=== PATIENT | female | born 1985 | race Caucasian/White ===

== ENCOUNTER 2021-01-06 18:58 | Inpatient (IN) | payer SELFPAY ==
[~2021-01-06] VITALS: Ht 170.2 cm; Wt 73.9 kg
--- NOTE | 2021-01-06 19:17 | NUR ---
PATIENT BIBRA C/O ALTERED MENTAL STATUS FROM A HOMELESS LONG-TERM'S RESTROOM FOUND UNCONSCIOUS. GIVEN NARCAN BY PARAMEDICS. PATIENT IS THRASHING, SELF-DEFECATING WITH DIARRHEA. PATIENT IS RESPONSIVE TO PAINFUL STIMULI. PATIENT IS BREATHING EVENLY AND UNLABORED ON 4L N/C AT 99%. PATIENT IS CONNECTED TO A HEAD SAWYER AUT[employer]ATIC.
--- NOTE | 2021-01-06 19:20 | NUR ---
PATIENT IS CLEANED, GIVEN A BED BATH. CHANGED INTO A GOWN. CLEAN SHEET IS GIVEN.
--- NOTE | 2021-01-06 19:45 | NUR ---
URINE COLLECTED AND SENT TO THE LAB
[2021-01-06] MEDS ORDERED: NALOXONE PREFILLED SYRINGE 2 MG/2 ML SYRINGE ONE (21:19)
[2021-01-06 21:20] LABS: BILIRUBIN,URINE SMALL (NEGATIVE); COLOR,URINE YELLOW (YELLOW); LEUKOCYTE ESTERASE ,URINE Small (NEGATIVE); NITRITE, URINE Positive (NEGATIVE); PH,URINE 5.5 (5.0-8.0); PROTEIN,URINE 100 mg/dl (NEGATIVE); UGLUCOSE Negative (NEGATIVE)
[2021-01-06] MEDS ORDERED: IV NS 0.9% 1,000 ML BAG IV ONE (21:30)
[2021-01-06] MEDS ORDERED: NALOXONE HCL 0.4 MG/ML AMPUL IV ONE (21:30)
[2021-01-06 21:33] LABS: BACTERIA,URINE Moderate /HPF (None Seen); SQUAMOUS EPITHELIAL CELL,UR 0-2 /HPF (None Seen); WBC,URINE 81-100 /HPF (0-3)
[2021-01-06 21:34] LABS: BASOPHILS # (AUTO) 0.1 K/uL (0.0-0.2); BASOPHILS % (AUTO) 0.3 % (0.0-2.0); HEMOGLOBIN 7.9 g/dL (11.5-14.8); LYMPHOCYTES # (AUTO) 1.6 K/uL (0.8-4.8); MONOCYTES # (AUTO) 0.7 K/uL (0.1-1.30)
[2021-01-06 21:37] LABS: HEMATOCRIT 25 % (33-45); MEAN CORPUSCULAR HGB CONC 32 g/dl (31.0-36.0); MEAN CORPUSCULAR VOLUME 79 fL (82-100); MONOCYTES % (AUTO) 3.6 % (2.0-12.0); NEUTROPHILS % (AUTO) 88.1 % (43.0-81.0); PLATELET COUNT (AUTO) 419 K/uL (150-450); RED BLOOD CELL COUNT(AUTO) 3.08 MIL/uL (4.0-5.2); WHITE BLOOD COUNT (AUTO) 20.4 K/uL (4.3-11.0)
[2021-01-06] MEDS ORDERED: CEFTRIAXONE 1GM BAG (ER ONLY) 50 ML IV ONE ×2 (21:38→22:00)
[2021-01-06] MEDS ORDERED: AZITHROMYCIN 500 MG VIAL ONE (21:38)
[2021-01-06 21:49] LABS: CALCIUM, SERUM 7.5 mg/dL (8.5-10.1); CARBON DIOXIDE 27 mmol/L (21-32); CHLORIDE 87 mmol/L (98-107); CREATININE 0.6 mg/dL (0.6-1.3); GLUCOSE 135 mg/dL (74-106); POTASSIUM 2.9 mmol/L (3.5-5.1); SODIUM SERUM 125 mmol/L (136-145); UREA NITROGEN, BLOOD 8 mg/dL (7-18)
[2021-01-06 21:55] LABS: ACETAMINOPHEN < 10 ug/ml (10-30); ALANINE AMINOTRANSFERASE 8 U/L (12-78); ALBUMIN 1.6 g/dL (3.4-5.0); ALCOHOL, BLOOD < 3 mg/dL (0-0); ALKALINE PHOSPHATASE 104 U/L (46-116); ASPARTATE AMINOTRANSFERASE 35 U/L (15-37); BILIRUBIN,DIRECT 0.5 mg/dL (0.0-0.2); BILIRUBIN,TOTAL 1.1 mg/dL (0.2-1.0); TOTAL PROTEIN, SERUM 6.1 g/dL (6.4-8.2)
[2021-01-06] MEDS ORDERED: AZITHROMYCIN 500 MG in IV D5W 250 ML IV ONE (22:00)
--- NOTE | 2021-01-06 22:20 | NUR ---
COVID SWAB RAPID COLLECTED AND SENT TO THE LAB.
[2021-01-07 00:32] LABS: BAND % (MANUAL) 3 % (0.0-5.0); LYMPHOCYTES % (MANUAL) 7 % (16-48); METAMYELOCYTES % 1 % (0-0); MONOCYTES % (MANUAL) 1 % (0-11.0); NEUTROPHILS % (MANUAL) 88 (42-76)
--- NOTE | 2021-01-07 01:01 | NUR ---
PATIENT CLEANED AND PROVIDED WITH CLEAN SHEETS AND GOWN
--- NOTE | 2021-01-07 06:14 | NUR ---
Patient is awake. Alert and oriented X4. Patient is asking for Neema (friend) and Lavelle (Boyfriend)
--- NOTE | 2021-01-07 06:49 | NUR ---
Note iman in EDM - 01/07/21 at 0710 by SON Patient's medication, Timoptic give 1 drop in each eyes once in the AM. Dorzolamid HCL give 1 drop in each eye once in the AM and once in the PM. Lumigan give 1 drop in each eye once in the PM.
--- NOTE | 2021-01-07 09:12 | NUR ---
HOUSE SUP CALLED FOR BED,NO BED AT THIS TIME
--- NOTE | 2021-01-07 13:46 | NUR ---
SS Consult: SS Consult requested for OD & Homelessness. The pt. is a 36-year old female who was BIBRA after "found unconscious in the bathroom of a homeless skilled nursing. Patient was given Narcan and was revived " per EMR. The pt. appears disheveled is A&O X3 and makes good eye contact. Pt.'s speech and thought process are WNL. Pt. denies SI/HI an denies hallucinations. Pt.'s mood is Depressed and pt. is guarded. BARON explored pt.'s living situation. Pt. states he has been homeless and is currently staying with a friend. SW explored pt.'s mental health Hx. Pt. denies any mental health illness or psychotropic medications. SW explored pt.'s drug & ETOH use. Patient admits to drug use and stated, "I don't want to talk about it". SW offered rehab placement and pt. refused. SW explored pt.'s support system. Pt. states her friend, Neema [phone] is her support system. Pt. states she is not ambulatory. SW will provide clothing and wheelchair before D/C if needed. SW will be available. D/C PLAN: SW Offred pt. skilled nursing placement and pt. refused and stated "I want to go home". SW asks where is home. Pt. did not provide details. SW explore if pt.'s friend can pick her up. Pt. stated, "can I use the phone?". SW notified her that she is able to use the phone and will notify nursing. SW will be available to assist with D/C planning when pt. is medically clear. Pt. signed homeless waiver and it was placed in the chart. BARON provided pt. with homeless resources and he accepted them : Year-round shelters: [facility] [address] [place] [address] ; [facility] [address] [place] [address]; [facility] [id number] [facility] [address] Winter Shelters: [facility] Provider: [facility] [place] Address: [facility], [address] # of Beds: 47 Population Served: [facility] 6 | [facility] Irma Collier [place] Provider: Home at Last Address: [address] [facility], [address] # of Beds: 66 Population Served: [facility] Amelia [place] Provider: [facility] Address: [address] [facility], [address] # of Beds: 56 Population Served: [facility] Lucian [place] Provider: SS[facility] Address: [address] [facility], [address] # of Beds: 49 Population Served: [facility] 8 | Faith Bear Dance Provider: First to Serve Address: [address] [facility], [address] # of Beds: 37 Population Served: [facility] Hygiene: [facility]: [address] [facility] ; [place] [facility] [address] [facility] ; [facility] [address] [facility] [place] . Food Resources: [place] [facility] at [facility]- [address] [facility] [place]; Meet Each Need with Dignity ([facility]) [address] [facility]; [facility] Food Pantry 7766 [facility]; [facility] [address] [facility] [place] Mental Health resources provided: [facility] [address] [place] [address] ; [facility] [address] [facility] [address], [place] [address] ; Scarlet Kinney [facility] [address] [place] [address] ; [facility] [address] [place], [place] [id number] Healthcare Clinics: [facility] [address] [facility], [address] [place]. [place] ; [facility] [address] [facility] [address] [place] [address]; [facility] Health [place] [address] [place] [address] [phone] Counseling--Outpatient [facility] [address] [facility], [place] [address] (Specializes in in-depth psychotherapy for emotional distress: anxiety, depression, interpersonal conflicts, life transitions, childhood abuse) [facility] [address] [place] [address] (Assist with solving problem marital difficulties, separation & divorce, aging parents, & grief, chronic & terminal illness) [facility] [address] [place] [address] (Deal with loss & grief, anxiety, marital difficulties) Homebound/Mental Health Services [address] [facility] [address] [place] [address] (Provide in-home mental services to people who are incapable of leaving their homes) [facility] for Needs of the Elderly Senior Service/Resource Center [address] [facility] [address] [facility] [address] [place], [place] [address] PSYCHIATRIC OUTPATIENT SERVICES [facility] Partial Hospitalization and Intensive Outpatient Program (Managed Care and [place] Only)[address] [address]. [facility] [phone] [facility] Partial Hospitalization and Outpatient [id number] [facility] [address] [place], [place] [phone] [facility] Center [id number] [facility] [address] [place], [place] [phone] [facility] Partial Hospitalization and Outpatient [id number] [place], [phone] Substance Abuse resources provided included: [facility] Substance Abuse Self-Helpline ([facility]) ; C[facility]LP [address] Counts Include 234 Beds At [facility]. [place] [address] ; [facility] [address] [facility] [address] ; [facility] [address] [facility] v[facility]. [place] [id number] ; [facility] [address] [facility] [id number] ; [facility] 35[address] Lavelle Nichols [facility] [address] ; [facility] [place] 9[address] [facility] [phone] ; [facility] Substance Abuse Helpline([facility] ; [facility] ; [facility]; [facility] [place]; [facility] [place]; [facility] Lavelle Nichols; [place] [facility] [place]; [facility] [place]; [facility] [place]; [facility]'s [place] [place]; Alcoholics Anonymous -SFV; At-Oiio-Ijunbqb ; Marijuana Anonymous -[facility]V; Narcotics Anonymous www.na.org;
[2021-01-07] MEDS ORDERED: POTASSIUM CHLORIDE 20 MEQ TAB.PRT.SR PO ONE ×2 (14:00→18:00)
[2021-01-07] MEDS ORDERED: IV NS 0.9% 1,000 ML IV PRN (14:00)
[2021-01-07] MEDS ORDERED: ONDANSETRON HCL/PF 4 MG/2 ML VIAL IVP PRN (14:00)
[2021-01-07] MEDS ORDERED: MAG HYDROX/AL HYDROX/SIMETH 30 ML UDC PO PRN (14:00)
[2021-01-07] MEDS ORDERED: Z GUARD REMEDY 2 OZ OINT TP PRN (14:00)
[2021-01-07] MEDS ORDERED: LORAZEPAM INJ 2 MG/ML VIAL IV PRN (14:00)
--- NOTE | 2021-01-07 14:00 | NUR ---
RN NOTE PATIENT REFUSED FULL BODY PHYSICAL ASSESSMENT INCLUDING GENITAL AREA.
[2021-01-07 16:00] VITALS: BP 112/85
--- NOTE | 2021-01-07 17:05 | NUR ---
PT FRIENDS NUMBER SCOTT DOMINGUEZ [phone]
--- NOTE | 2021-01-07 18:24 | NUR ---
RN CLOSING NOTES; PT IN BED RESTING, SLEEPING. PT TOLERATED 100% OF MEAL. PT A/OX3, PT STRUGGLES TO MOVE HER LEGS. PT HAD 2 BM, CLEANED AND DRY. PT HAS R HAND #22 WITH SALINE RUNNING TKO. PT ON REG DIET. VITAL SIGNS TAKEN AND WITHIN NORMAL LIMITS. PT BED RAILS UPX2, IN SEMI FOWLERS POSITION WITH CALL LIGHT WITHIN REACH. PT ENDORSED TO HEAT TREATMENT TECHNICIAN RN.
--- NOTE | 2021-01-07 19:46 | NUR ---
RN OPENING NOTE; RECEIVED PT IN BED RESTING IN BED, A/O X1-2. ON 2L O2 VIA NC, NO SOB OR RESP. DISTRESS NOTED. ON TELE MONITOR SINUS TACHYCARDIA. PT HAS R HAND 22G RUNNING NS @ 125ML/HR. SAFETY MEASURES IMPLEMENTED: SIDE RAILS UPX2, IN SEMI FOWLERS POSITION WITH CALL LIGHT WITHIN REACH. BED LOCKED AND IN LOWEST POSITION. NO ACUTE DISTRESS NOTED AT THIS TIME
[2021-01-07 20:00] VITALS: BP 96/45
--- NOTE | 2021-01-07 20:10 | NUR ---
RN NOTE PT. VITAL SIGNS ABNORMAL. TEMP 101, HR 130'S (CURRENT BASELINE) AND RR 30'S. METAL TILE LATHER MD AND CHARGE NURSE AWARE WITH NO FURTHER ORDERS. CURRENT ABX TREATMENT TO BE CONTINUED.
[2021-01-07] MEDS: CEFTRIAXONE 1 G in IV D5W 50 ML IV SCH (21:11)
[2021-01-07] MEDS: AZITHROMYCIN 250 MG TABLET PO SCH (21:11)
--- NOTE | 2021-01-07 21:58 | NUR ---
215 NADYA Brito was notified of critical blood culture result Gram Positive Cocci in clusters, and temp of 101.7 with no order made.
[2021-01-08] VITALS: BP 101/59
--- NOTE | 2021-01-08 01:00 | NUR ---
RN NOTE PT. CONTINUOS TO HAVE LOW GRADE FEVER 99.1, RR NOW IN 30'S, AND HR REMAINS 130'S. DR. HALL MADE AWARE, AWAITING RESPONSE.
[2021-01-08 04:00] VITALS: BP 102/50
--- NOTE | 2021-01-08 06:00 | NUR ---
RN NOTE UPON PT ROUNDING, PT. STATED SHE WAS LEAKING FROM RIGHT BREAST IMPLANT. OPEN ABOUT 2CM X 1CM. PICTURE TAKEN AND PLACED IN PT. CHART. CHARGE NURSE AWARE. WILL ENDORSE TO MORNING SHIFT RN .
[2021-01-08 06:38] LABS: BASOPHILS % (AUTO) 0.2 % (0.0-2.0); HEMATOCRIT 22 % (33-45); HEMOGLOBIN 7.2 g/dL (11.5-14.8); LYMPHOCYTES # (AUTO) 1.6 K/uL (0.8-4.8); LYMPHOCYTES % (AUTO) 12.5 % (20.0-44.0); MEAN CORPUSCULAR HGB CONC 32 g/dl (31.0-36.0); MEAN CORPUSCULAR VOLUME 81 fL (82-100); MONOCYTES # (AUTO) 0.4 K/uL (0.1-1.30); MONOCYTES % (AUTO) 2.8 % (2.0-12.0); NEUTROPHILS # (AUTO) 10.9 K/uL (1.8-8.9); NEUTROPHILS % (AUTO) 84.5 % (43.0-81.0); PLATELET COUNT (AUTO) 385 K/uL (150-450); RED BLOOD CELL COUNT(AUTO) 2.77 MIL/uL (4.0-5.2)
--- NOTE | 2021-01-08 06:57 | NUR ---
RN OPENING NOTE; PT SITTING IN BED, A/O X1-2. ON 2L O2 VIA NC, NO RESP. DISTRESS NOTED. ON TELE MONITOR SINUS TACHYCARDIA. PT HAS R HAND 22G RUNNING NS @ 125ML/HR. LOW GRADE FEVER ALONG WITH RESPIRATIONS IN 30'S, FUNERAL ARRANGER MD AND CHARGE NURSE AWARE. ALL ORDERS FOLLOWED THROUGHOUT SHIFT. PT KEPT CLEAN AND DRY. SAFETY MEASURES IMPLEMENTED: SIDE RAILS UPX2, IN SEMI FOWLERS POSITION WITH CALL LIGHT WITHIN REACH. BED LOCKED AND IN LOWEST POSITION. NO ACUTE DISTRESS NOTED AT THIS TIME Addendum: 01/08/21 at 0701 by ZIGGY RUFFIN RN CORRECTION: THIS IS [employer] CLOSING NOTE
[2021-01-08 07:14] LABS: THYROID STIMULATING HORMONE 1.185 uIU/mL (0.358-3.74)
--- NOTE | 2021-01-08 07:25 | NUR ---
RN OPENING NOTES RECEIVED PT IN BED, A/O X1. ON 4L O2 VIA NC, NO SOB OR ANY S/S OF RESPIRATORY DISTRESS NOTED. ON TELE MONITOR READING SINUS TACHYCARDIA. IV ACCESS ON R HAND #22 RUNNING NS @125ML/HR. NO PAIN REPORTED AT THIS TIME. SAFETY MEASURES IMPLEMENTED. CALL LIGHT WITHIN REACH. BED LOCKED AND IN LOWEST POSITION WITH SIDE RAILS UP X3. WILL CONTINUE TO MONITOR.
[2021-01-08 08:00] VITALS: BP 110/56
[2021-01-08 09:08] LABS: CALCIUM, SERUM 7.3 mg/dL (8.5-10.1); CREATININE 0.5 mg/dL (0.6-1.3); MAGNESIUM 1.9 mg/dL (1.8-2.4); PHOSPHORUS 2.2 mg/dL (2.5-4.9); POTASSIUM 3.6 mmol/L (3.5-5.1)
[2021-01-08] MEDS: PANTOPRAZOLE 40 MG TABLET.DR PO SCH (09:17)
[2021-01-08 12:00] VITALS: BP 108/60
--- NOTE | 2021-01-08 13:13 | NUR ---
CHARGE NURSE NOTES REPORT FROM [facility], PATIENT MRSA POSITIVE - URINE. RESULT RELAYED TO DR. PHILL BRADLEY. FOR ID CONSULT C/O ANGELINA
[2021-01-08] MEDS ORDERED: VANCOMYCIN 1 GM in IV D5W 250 ML IV ONE (15:00)
[2021-01-08] MEDS ORDERED: K PHOS NEUTRAL 250 MG TABLET PO ONE (15:30)
[2021-01-08 16:00] VITALS: BP 107/58
--- NOTE | 2021-01-08 18:51 | NUR ---
RN CLOSING NOTES NO SIGNIFICANT CHANGES THROUGHOUT THE SHIFT. NO SOB OR ANY DISTRESS. NO PAIN REPORTED AT THIS TIME. ALL DUE MEDS GIVEN. NEEDS ATTENDED. KEPT CLEAN AND COMFORTABLE. SAFETY MEASURES IN PLACE. WILL ENDORSE TO NIGHT RN FOR CHARLES.
--- NOTE | 2021-01-08 19:24 | NUR ---
RN OPENING NOTE PATIENT IN BED. A/OX2. PATIENT TACHYPNEIC SATURATING AT 93%-- ENCOURAGED TO PUT OXYGEN ON, NOW ON OXYGEN 3LPM. NO C/O PAIN. BILATERAL LEG EDEMA NON-PITTING NOTED. IV ANTIBIOTIC RUNNING AT THIS TIME. MEPILEX NOTED ON R. BREAST. DRY AND INTACT. TELE BOX READING ST AT 118. NO NEEDS AT THE MOMENT. SAFETY IN PLACE. WILL CONTINUE TO MONITOR.
[2021-01-08 20:00] VITALS: BP 112/66
[2021-01-08] MEDS: CEFTRIAXONE 1 G in IV D5W 50 ML IV SCH (20:31)
[2021-01-08] MEDS: ACETAMINOPHEN 325 MG TABLET PO PRN (20:40)
--- NOTE | 2021-01-08 20:42 | NUR ---
WEATHER CLERK NOTE TYLENOL GIVEN AT THIS TIME. PATIENT C/O 10/10 PAIN IN HER LEGS BUT ONLY HAS TYLENOL PRESCRIBED AT THE MOMENT. WILL REASSESS.
--- NOTE | 2021-01-08 20:42 | NUR ---
MS RN NOTES PATIENT HAS TAKEN OFF HER OXYGEN AGAIN.. PER PATIENT "SORRY, I CAN'T". PATIENT EDUCATION WAS DONE.. TOLD THE PATIENT THE I REALLY THINK THAT SHE WOULD BENEFIT FROM IT AND SHE SHOULD KEEP IT ON. PATIENT ACKNOWLEDGED BUT ADAMANTLY REFUSES. WILL CONTINUE TO MONITOR.
[2021-01-08] MEDS: MUPIROCIN OINT 2% 22 GM TUBE NS SCH (21:00)
[2021-01-08] MEDS ORDERED: MEROPENEM 500 MG in IV NS 0.9% 50 ML IV SCH (21:00)
[2021-01-08] MEDS: RIFAMPIN 300 MG CAPSULE PO SCH (21:39)
[2021-01-08] MEDS: TEMAZEPAM 15 MG CAPSULE PO PRN (21:41)
[2021-01-08] MEDS: AZITHROMYCIN 250 MG TABLET PO SCH (22:17)
[2021-01-08] MEDS: VANCOMYCIN 0.75 GM in IV D5W 250 ML IV SCH (22:18)
[2021-01-08] MEDS ORDERED: MEROPENEM 500 MG VIAL IV ONE (22:50)
[2021-01-08] MEDS: MEROPENEM 500 MG in IV NS 0.9% 50 ML IV SCH (22:54)
[2021-01-09] MEDS: IV NS 0.9% 1,000 ML IV PRN (05:37)
[2021-01-09] MEDS ORDERED: MEROPENEM 500 MG VIAL IV ONE (05:53)
[2021-01-09] MEDS: MEROPENEM 500 MG in IV NS 0.9% 50 ML IV SCH (05:58)
--- NOTE | 2021-01-09 06:16 | NUR ---
MS RN NOTES PATIENT AGREED TO BE PUT ON OXYGEN LONG IT IS A MASK. PER PATIENT THE NASAL CANNULA IS IRRITATING HER NOSE. DID PATIENT TEACHING THAT THE MASK IS ONLY FOR HIGH FLOW OXYGEN AND SHE IS ONLY RECEIVING 2LPM OF OXYGEN. PATIENT ADAMANTLY REFUSED NASAL CANNULA HENCE I GAVE HER A MASK FOR OXYGEN. WILL REINFORCE AND ENDORSE TO MORNING SHIFT RN
--- NOTE | 2021-01-09 06:37 | NUR ---
MS RN CLOSING NOTE PATIENT IN BED WATCHING TELEVISION. A/OX3. PATIENT TACHYPNEIC BUT BEEN REFUSING OXYGEN -- ON AND OFF. NO C/O PAIN AT THIS TIME. IV NS RUNNING @75 ML/HR. ALL NEEDS ATTENDED. ALL SCHED MEDS ADMINISTEREDEXCEPT FOR THE NEW ORDER OF BACTROBAN THAT WAS NOT ON CASSETTE NOR BED SIDE YET. SAFETY KEPT IN PLACE THE WHOLE SHIFT. WILL ENDORSE CARE TO MORNING SHIFT RN.
--- NOTE | 2021-01-09 07:19 | NUR ---
RN OPENING NOTE Pt is Awake, A/OX2, no respiratory distress, no SOB, On room air. BECKY Midline 18 w no s/sx of infiltration. Safety precautions implemented, bed locked in lowest position, call light within reach.
[2021-01-09 07:47] LABS: BASOPHILS % (AUTO) 0.2 % (0.0-2.0); EOSINOPHILS % (AUTO) 0.2 % (0.0-6.0); HEMATOCRIT 26 % (33-45); HEMOGLOBIN 8.3 g/dL (11.5-14.8); LYMPHOCYTES # (AUTO) 1.8 K/uL (0.8-4.8); LYMPHOCYTES % (AUTO) 19.7 % (20.0-44.0); MEAN CORPUSCULAR HGB CONC 32 g/dl (31.0-36.0); MEAN CORPUSCULAR VOLUME 82 fL (82-100); MONOCYTES # (AUTO) 0.4 K/uL (0.1-1.30); MONOCYTES % (AUTO) 3.9 % (2.0-12.0); NEUTROPHILS # (AUTO) 6.9 K/uL (1.8-8.9); PLATELET COUNT (AUTO) 387 K/uL (150-450)
[2021-01-09] MEDS: VANCOMYCIN 0.75 GM in IV D5W 250 ML IV SCH ×2 (08:09→15:38)
[2021-01-09] MEDS: MUPIROCIN OINT 2% 22 GM TUBE NS SCH ×2 (08:11→21:21)
[2021-01-09] MEDS: PANTOPRAZOLE 40 MG TABLET.DR PO SCH (08:12)
[2021-01-09] MEDS: RIFAMPIN 300 MG CAPSULE PO SCH (08:12)
[2021-01-09 08:25] LABS: CALCIUM, SERUM 7.2 mg/dL (8.5-10.1); CREATININE 0.4 mg/dL (0.6-1.3); PHOSPHORUS 3.3 mg/dL (2.5-4.9)
[2021-01-09 09:45] LABS: THYROID STIMULATING HORMONE 1.56 uIU/mL (0.358-3.74)
[2021-01-09 10:00] VITALS: BP 106/67
[2021-01-09] MEDS: POTASSIUM CHLORIDE 20 MEQ TAB.PRT.SR PO SCH ×3 (11:08→12:39)
[2021-01-09] MEDS: MEROPENEM 1 G in IV NS 0.9% 100 ML IV SCH ×2 (12:13→21:13)
[2021-01-09] MEDS ORDERED: diphenhydrAMINE HCL 50 MG CAPSULE PO PRN (14:00)
--- NOTE | 2021-01-09 15:12 | NUR ---
RN NOTE Refused MRI spine, explained risks and benefits. Continues to refuse states she does not need it. aware.
[2021-01-09] MEDS: ACETAMINOPHEN 325 MG TABLET PO PRN ×2 (15:38→23:06)
--- NOTE | 2021-01-09 19:21 | NUR ---
CONTINUITY OF CARE Patient in bed, awake. Ongoing IVF, tolerating room air. BUE/BLE weakness. Fall precaution maintained.
[2021-01-09 20:00] VITALS: BP 115/68
[2021-01-09] MEDS: AZITHROMYCIN 250 MG TABLET PO SCH (21:18)
[2021-01-09] MEDS: TEMAZEPAM 15 MG CAPSULE PO PRN (23:06)
[2021-01-09] MEDS: VANCOMYCIN 1 GM in IV D5W 250 ML IV SCH (23:16)
--- NOTE | 2021-01-09 23:21 | NUR ---
UNABLE TO SLEEP Given Tylenol for left thigh pain. Patient reports unable to sleep request sleep aid. Given Ambien, will reassess hours of sleep.
[2021-01-10] MEDS: MEROPENEM 1 G in IV NS 0.9% 100 ML IV SCH ×3 (04:27→21:52)
--- NOTE | 2021-01-10 06:34 | NUR ---
CONTINUITY OF CARE Patient is A/O x3, Forgetful. Ongoing IVF. On Abx Merrem and Vancomycin. Afebrile. BUE/BLE weakness, trace edema. Right breast open wound with light yellow discharge, dressing changed. Able to sleep 6 hours with Restoril. MRI spine pending. Will endorse to oncoming RN.
[2021-01-10] MEDS: IV NS 0.9% 1,000 ML IV PRN (07:04)
[2021-01-10] MEDS: VANCOMYCIN 1 GM in IV D5W 250 ML IV SCH ×3 (07:05→23:59)
[2021-01-10] MEDS: RIFAMPIN 300 MG CAPSULE PO SCH (09:00)
[2021-01-10] MEDS: PANTOPRAZOLE 40 MG TABLET.DR PO SCH (09:00)
[2021-01-10] MEDS: MUPIROCIN OINT 2% 22 GM TUBE NS SCH ×2 (09:01→22:13)
[2021-01-10] MEDS ORDERED: POTASSIUM CHLORIDE 20 MEQ TAB.PRT.SR PO ONE (09:30)
[2021-01-10 10:09] LABS: CALCIUM, SERUM 7.3 mg/dL (8.5-10.1); CREATININE 0.6 mg/dL (0.6-1.3); POTASSIUM 3.4 mmol/L (3.5-5.1)
[2021-01-10] MEDS ORDERED: LORAZEPAM INJ 2 MG/ML VIAL IV PRN (11:00)
[2021-01-10] MEDS: VENLAFAXINE XR 75 MG CAP.SR.24H PO SCH (11:46)
[2021-01-10] MEDS: MORPHINE SULFATE INJ 4 MG/ML DISP.SYRIN IV PRN ×3 (13:40→22:13)
[2021-01-10] MEDS: ENOXAPARIN SODIUM 40 MG/0.4 ML DISP.SYRIN SQ SCH (15:29)
--- NOTE | 2021-01-10 18:33 | NUR ---
MS RN CLOSING NOTE PATIENT CURRENTLY LYING IN BED, AWAKE AND WATCHING TV. STABLE ON ROOM AIR - NO SOB NOTED. NO DISTRESS/DISCOMFORT NOTED. IV ACCESS TO RIGHT UPPER ARM - MIDLINE - RUNNING NS @ 75ML/HR. LAST PAIN MEDICATION GIVEN @ 1809 FOR GENERALIZED PAIN - MORPHINE 4MG IV. PATIENT WILL HAVE MRI TOMORROW MORNING. WOUND CONSULT PENDING. SAFETY MEASURES IN PLACE. CALL LIGHT WITHIN REACH. WILL ENDORSE TO TOOL ROOM GEAR MACHINE OPERATOR NURSE FOR CHARLES.
--- NOTE | 2021-01-10 19:40 | NUR ---
RN NOTE PT RECEIVED IN BED. CURRENTLY ON 2L OF O2 VIA NC. NO SIGNS OF RESP DISTRESS. PT IS A&OX3. PT HAS RIGHT UPPER ARM MIDLINE INFUSING NS AT 75 ML/HR. IV LINE FLUSHED, PATENT, AND INTACT WITH NO SIGNS OF INFILTRATION. ALL SAFETY MEASURES IMPLEMENTED. BED LOCKED AND IN LOWEST POSITION. BED ALARM ON. CALL LIGHT WITHIN REACH. WILL CONTINUE TO MONITOR THROUGHOUT THE SHIFT.
[2021-01-10 20:00] VITALS: BP 127/67
[2021-01-11 04:00] VITALS: BP 128/84
[2021-01-11] MEDS: MEROPENEM 1 G in IV NS 0.9% 100 ML IV SCH ×3 (04:48→20:08)
[2021-01-11] MEDS: IV NS 0.9% 1,000 ML IV PRN (04:48)
[2021-01-11] MEDS: MORPHINE SULFATE INJ 4 MG/ML DISP.SYRIN IV PRN ×4 (05:39→20:07)
[2021-01-11 06:35] LABS: BASOPHILS % (AUTO) 0.3 % (0.0-2.0); EOSINOPHILS % (AUTO) 0.3 % (0.0-6.0); HEMATOCRIT 24 % (33-45); HEMOGLOBIN 7.5 g/dL (11.5-14.8); LYMPHOCYTES # (AUTO) 2.4 K/uL (0.8-4.8); LYMPHOCYTES % (AUTO) 24.2 % (20.0-44.0); MEAN CORPUSCULAR HGB CONC 32 g/dl (31.0-36.0); MEAN CORPUSCULAR VOLUME 82 fL (82-100); MONOCYTES # (AUTO) 0.5 K/uL (0.1-1.30); MONOCYTES % (AUTO) 5.4 % (2.0-12.0); NEUTROPHILS # (AUTO) 6.9 K/uL (1.8-8.9); NEUTROPHILS % (AUTO) 69.8 % (43.0-81.0); PLATELET COUNT (AUTO) 425 K/uL (150-450); RED BLOOD CELL COUNT(AUTO) 2.87 MIL/uL (4.0-5.2); WHITE BLOOD COUNT (AUTO) 9.8 K/uL (4.3-11.0)
--- NOTE | 2021-01-11 07:01 | NUR ---
RN NOTE NO CHANGES IN PT CONDITION DURING SHIFT. PT IS ON 2L OF O2 VIA NC WITH NO RESP DISTRESS. A&OX3. PT HAS RIGHT UPPER ARM MIDLINE FLUSHED, PATENT, AND INTACT NO SIGNS OF INFILTRATION. ALL DUE MEDS GIVEN ORDERED. PT KEPT CLEAN AN COMFORTABLE. ALL SAFETY MEASURES IMPLEMENTED. CALL LIGHT WITHIN REACH. BED ALARM ON. BED LOCKED AND IN LOWEST POSITION. WILL ENDORSE TO MORNING SHIFT RN FOR CHARLES.
[2021-01-11 07:02] LABS: CALCIUM, SERUM 7.3 mg/dL (8.5-10.1); CREATININE 0.5 mg/dL (0.6-1.3); POTASSIUM 3.4 mmol/L (3.5-5.1)
--- NOTE | 2021-01-11 08:06 | NUR ---
MS RN OPENING NOTE PATIENT IS IN BED RESTING, PATIENT IS IN NO ACUTE DISTRESS. PATIENT IS ON 2L ON NC TOLERATING WELL. SAFETY PRECAUTIONS ARE ON, BED IS LOCKED IN THE LOWEST POSITION WITH SIDE RAILS UP, CALL LIGHT WITHIN REACH, WILL CONTINUE TO MONITOR CLOSELY.
[2021-01-11] MEDS: VANCOMYCIN 1 GM in IV D5W 250 ML IV SCH ×3 (08:38→23:29)
[2021-01-11] MEDS: MUPIROCIN OINT 2% 22 GM TUBE NS SCH ×2 (08:38→20:20)
[2021-01-11] MEDS: VENLAFAXINE XR 75 MG CAP.SR.24H PO SCH (08:38)
[2021-01-11] MEDS: RIFAMPIN 300 MG CAPSULE PO SCH (08:39)
[2021-01-11] MEDS: PANTOPRAZOLE 40 MG TABLET.DR PO SCH (08:40)
[2021-01-11] MEDS ORDERED: POTASSIUM CHLORIDE 20 MEQ TAB.PRT.SR PO SCH ×2 (09:00→11:30)
--- NOTE | 2021-01-11 10:34 | NUR ---
WOUND CARE CONSULT: REVIEWED CHART, NURSING DOCUMENTATION AND PHOTO WHICH INDICATES BREAST WOUND, PRESENT ON ADMISSION. PER PHILL BRADLEY DNP PLASTIC SURGERY CONSULT MADE TO DR KOHANZADEH. JUAREZ IN AGREEMENT WITH PLAN OF CARE.
--- NOTE | 2021-01-11 11:04 | NUR ---
MS RN NOTE PHARMACY CHANGED THE TIME OF THE MEDICATION
[2021-01-11 12:00] VITALS: BP 126/82
[2021-01-11 12:06] LABS: *SPE A/G RATIO 0.4 (0.7-1.7); *SPE ALPHA-1-GLOBULIN 0.5 g/dL (0.0-0.4); *SPE ALPHA-2-GLOBULIN 1.1 g/dL (0.4-1.0); *SPE BETA GLOBULIN 0.8 g/dL (0.7-1.3); *SPE M-SPIKE Not Observed g/dL (Not Observed)
[2021-01-11] MEDS ORDERED: GADOTERATE MEGLUMINE 10 MMOL/20 ML VIAL IV ONE (16:20)
--- NOTE | 2021-01-11 18:53 | NUR ---
MS RN CLOSING NOTE PATIENT IS IN BED RESTING, PATIENT IS IN NO ACUTE DISTRESS. PATIENT IS ON 2L ON NC TOLERATING WELL. SAFETY PRECAUTIONS ARE ON, BED IS LOCKED IN THE LOWEST POSITION WITH SIDE RAILS UP, CALL LIGHT WITHIN REACH, ENDORSE PATIENT TO CLINICAL PATHOLOGIST NURSE FOR CHARLES.
--- NOTE | 2021-01-11 19:30 | NUR ---
MS RN OPENING NOTE RECEIVED PT AWAKE IN BED. A/O X3. PT IS ON 2L O2 VIA NC SATURATING AT 99%. NO SOB OR S/S OF RESPIRATORY DISTRESS NOTED. IV ACCESS IN BECKY MIDLINE, INFUSING NS @ 75 ML/HR. IV IS INTACT AND PATENT. SAFETY PRECAUTIONS MAINTAINED. BED IN LOWEST LOCKED POSITION, HOB ELEVATED, SIDE RAILS UP X2. CALL LIGHT AND TABLE WITHIN REACH. WILL CONTINUE WITH PLAN OF CARE.
[2021-01-11 20:00] VITALS: BP 121/78
[2021-01-11] MEDS: ENOXAPARIN SODIUM 40 MG/0.4 ML DISP.SYRIN SQ SCH (20:40)
[2021-01-12] MEDS: MORPHINE SULFATE INJ 4 MG/ML DISP.SYRIN IV PRN ×5 (02:14→20:54)
[2021-01-12 04:00] VITALS: BP 113/77
[2021-01-12] MEDS: MEROPENEM 1 G in IV NS 0.9% 100 ML IV SCH ×2 (04:20→13:32)
--- NOTE | 2021-01-12 06:56 | NUR ---
MS RN CLOSING NOTE PT IS AWAKE IN BED. A/O X3. PT IS ON 2L O2 VIA NC SATURATING AT 99%. NO SOB OR S/S OF RESPIRATORY DISTRESS NOTED. IV ACCESS IN BECKY MIDLINE, INFUSING NS @ 75 ML/HR. IV IS INTACT, PATENT, AND FLUSHING WELL. ALL NEEDS HAVE BEEN MET. PAIN MANAGEMENT ADMINISTERED PER ORDER. SAFETY PRECAUTIONS MAINTAINED AT ALL TIMES. BED IN LOWEST LOCKED POSITION, HOB ELEVATED, SIDE RAILS UP X2. CALL LIGHT AND TABLE WITHIN REACH. WILL ENDORSE TO ONCOMING NURSE FOR CHARLES.
--- NOTE | 2021-01-12 07:44 | NUR ---
MS/RN OPENING NOTES RECEIVED PATIENT ON BED SLEEPING, EASILY AWAKEN BY NAME AND LIGHT TOUCH. PATIENT IS ON 2L OXYGEN SATURATION 96%. PATIENT IN NO APPARENT RESPIRATORY DISTRESS NOTED.NO COMPLAINED OF PAIN AT THIS TIME. WILL CONTINUE TO MONITOR.
[2021-01-12] MEDS: PANTOPRAZOLE 40 MG TABLET.DR PO SCH (07:53)
[2021-01-12] MEDS: RIFAMPIN 300 MG CAPSULE PO SCH (08:17)
[2021-01-12] MEDS: VENLAFAXINE XR 75 MG CAP.SR.24H PO SCH (08:17)
[2021-01-12] MEDS: MUPIROCIN OINT 2% 22 GM TUBE NS SCH ×2 (09:13→20:07)
[2021-01-12] MEDS ORDERED: POTASSIUM CHLORIDE 20 MEQ TAB.PRT.SR PO ONE (09:30)
[2021-01-12 10:23] LABS: CALCIUM, SERUM 7.5 mg/dL (8.5-10.1); CREATININE 0.5 mg/dL (0.6-1.3); POTASSIUM 3.7 mmol/L (3.5-5.1)
[2021-01-12] MEDS: VANCOMYCIN 1 GM in IV D5W 250 ML IV SCH ×2 (12:23→19:47)
--- NOTE | 2021-01-12 18:56 | NUR ---
MS/RN CLOSING NOTES PATIENT IS ON BED. ALERT AND ORIENTED X3. PATIENT IS ON AND OFF ON 2L OXYGEN SATURATION WELL. PATIENT IN NO APPARENT RESPIRATORY DISTRESS NOTED. NO COMPLAINED OF PAIN NOTED AT THIS TIME. TIFFANIE AND EXAMINED BY MD WITH ORDERS MADE AND CARRIED OUT. ALL DUE MEDICATIONS WAS GIVEN. IV ACCESS AT RIGHT UPPER ARM MIDLINE WITH IV FLUID OF NS1L AT 75ML/HR ON AND INFUSING WELL. SAFETY PRECAUTIONS WAS IN PLACED. BED IN LOWEST POSITION AND LOCKED. SIDERAILS UP X2 AND LOCKED. CALL LIGHT WITHIN REACH. WILL ENDORSED TO TYRE BUILDER FOR CHARLES.
--- NOTE | 2021-01-12 19:00 | NUR ---
RN NOTE RECEIVED PATIENTO2: IN BED RESTING ALERT ORIENTED X3 VERBALLY RESPONSIVE ON 2L OXYGEN VIA NASAL CANNULA, O2:93% IV SITE IS ON RIGHT UPPER ARM MIDLINE INTACT PATENT ON IV HYDRATION NS 0.9% 75CC/HR INCONTINENT TO BOWEL/BLADDER SAFETY MEASURE IMPLEMENT BED IN LOW POSITION AND LOCKED,KEEP CALL LIGHT WITHIN REACH,CONTINUE TO MONITOR.
[2021-01-12] MEDS: ACETAMINOPHEN 325 MG TABLET PO PRN (19:24)
--- NOTE | 2021-01-12 19:24 | NUR ---
RN NOTE TEMPERATURE IS 100.4 ACETAMINOPHEN 650 MG PRN GIVEN CONTINUE TO MONITOR.
[2021-01-12] MEDS: ENOXAPARIN SODIUM 40 MG/0.4 ML DISP.SYRIN SQ SCH (20:09)
[2021-01-12 21:00] VITALS: BP 118/68
--- NOTE | 2021-01-12 21:00 | NUR ---
RN NOTE REPORT GIVEN TO KASEY MONTAGUE ,PATIENT TRANSFER TO [facility] 324-1
--- NOTE | 2021-01-12 21:02 | NUR ---
GASOLINE DRAGLINE OPERATOR NOTE RECEIVED PATIENT FROM SINA MONTAGUE. PATIENT IS ALERT AND ORIENTED X 3, ABLE TO MAKE NEEDS KNOWN. PATIENT HAS A BECKY MIDLINE PATENT AND INTACT, SL AT THIS TIME. DRESSING PRESENT ON THE R BREAST WOUND. PATIENT DOES NOT COMPLAIN OF PAIN AT THIS TIME. PATIENT WEARING A DIAPER AT THIS TIME, ALTHOUGH PATIENT STATES THAT SHE IS CONTINENT. PATIENT IS AMBULATORY W/ ASSIST. PATIENT SATTING AT 94% ON RA, 96% ON 2 L O2 SUPPLEMENTATION. PATIENT AFEBRILE. SAFETY MEASURES IN PLACE: BED IN LOCKED AND IN LOWEST POSITION, CALL LIGHT WITHIN REACH, WITHDRAWAL PRECAUTIONS IMPLEMENTED. WILL MONITOR PATIENT CLOSELY.
--- NOTE | 2021-01-12 23:00 | NUR ---
RN CHARLES TRANSFERRED CARE TO ROSHAN MONTAGUE. PATIENT SLEEPING, NOT IN ANY APPARENT DISTRESS.
[2021-01-13] MEDS: MORPHINE SULFATE INJ 4 MG/ML DISP.SYRIN IV PRN ×5 (03:10→20:53)
[2021-01-13] MEDS: VANCOMYCIN 1 GM in IV D5W 250 ML IV SCH ×3 (03:52→21:16)
--- NOTE | 2021-01-13 06:40 | NUR ---
MS RN NOTES PATIEN ALERT AND ORIENTED X 3, ABLE TO MAKE NEEDS KNOWN. PATIENT HAS A BECKY MIDLINE PATENT AND INTACT, SL AT THIS TIME. DRESSING PRESENT ON THE R BREAST WOUND. PATIENT DOES NOT COMPLAIN OF PAIN AT THIS TIME. PATIENT WEARING A DIAPER AT THIS TIME, ALTHOUGH PATIENT STATES THAT SHE IS CONTINENT. PATIENT IS AMBULATORY W/ ASSIST. PATIENT SATTING AT 94% ON RA, 96% ON 2 L O2 SUPPLEMENTATION. PATIENT AFEBRILE. SAFETY MEASURES IN PLACE: BED IN LOCKED AND IN LOWEST POSITION, CALL LIGHT WITHIN REACH, WITHDRAWAL PRECAUTIONS IMPLEMENTED. WILL ENDORSE CARE.
[2021-01-13 06:55] LABS: BASOPHILS % (AUTO) 0.5 % (0.0-2.0); EOSINOPHILS % (AUTO) 0.5 % (0.0-6.0); HEMATOCRIT 24 % (33-45); HEMOGLOBIN 7.6 g/dL (11.5-14.8); LYMPHOCYTES # (AUTO) 2.6 K/uL (0.8-4.8); LYMPHOCYTES % (AUTO) 30.9 % (20.0-44.0); MEAN CORPUSCULAR HGB CONC 32 g/dl (31.0-36.0); MEAN CORPUSCULAR VOLUME 81 fL (82-100); MONOCYTES # (AUTO) 0.5 K/uL (0.1-1.30); MONOCYTES % (AUTO) 5.5 % (2.0-12.0); NEUTROPHILS # (AUTO) 5.3 K/uL (1.8-8.9); NEUTROPHILS % (AUTO) 62.6 % (43.0-81.0); PLATELET COUNT (AUTO) 503 K/uL (150-450); RED BLOOD CELL COUNT(AUTO) 2.92 MIL/uL (4.0-5.2); WHITE BLOOD COUNT (AUTO) 8.5 K/uL (4.3-11.0)
[2021-01-13 07:08] LABS: CALCIUM, SERUM 7.6 mg/dL (8.5-10.1); CREATININE 0.4 mg/dL (0.6-1.3); POTASSIUM 3.7 mmol/L (3.5-5.1)
[2021-01-13 08:00] VITALS: BP 117/69
[2021-01-13] MEDS: VENLAFAXINE XR 75 MG CAP.SR.24H PO SCH (09:24)
[2021-01-13] MEDS: PANTOPRAZOLE 40 MG TABLET.DR PO SCH (09:24)
[2021-01-13] MEDS: RIFAMPIN 300 MG CAPSULE PO SCH (09:24)
[2021-01-13] MEDS: MUPIROCIN OINT 2% 22 GM TUBE NS SCH ×2 (09:25→20:36)
[2021-01-13] MEDS ORDERED: MEROPENEM 500 MG in IV NS 0.9% 50 ML IV SCH (13:00)
[2021-01-13] MEDS: MEROPENEM 1 G in IV NS 0.9% 100 ML IV SCH ×2 (14:31→20:36)
[2021-01-13 16:00] VITALS: BP 124/74
[2021-01-13] MEDS: SOD FERRIC GLUC 125 MG in IV NS 0.9% 100 ML IV SCH (16:03)
--- NOTE | 2021-01-13 18:30 | NUR ---
med. x3 with morphine for pain.tolerated well.
--- NOTE | 2021-01-13 19:15 | NUR ---
RN OPENING NOTE PATIENT IS IN BED, AWAKE. A/O X 3, ABLE TO MAKE NEEDS KNOWN. PATIENT IS A/O X 3. BECKY MIDLINE 18 G PATENT AND INTACT. PATIENT RECEIVED WITH 2 L OF OXYGEN SUPPLEMENTATION, 98% O2 SAT. BREATHING EVEN AND UNLABORED. SAFETY MEASURES IN PLACE: BED LOCKED AND IN LOWEST POSITION, CALL LIGHT WITHIN REACH, SIDE RAILS UP, BED ALARM ON. WILL MONITOR PATIENT CLOSELY.
[2021-01-13 20:00] VITALS: BP 130/78
--- NOTE | 2021-01-13 20:00 | NUR ---
RN NOTE STILL AWAITING VANCO TROUGH. CALLED LAB ALREADY
[2021-01-13] MEDS: ENOXAPARIN SODIUM 40 MG/0.4 ML DISP.SYRIN SQ SCH (20:35)
[2021-01-14] MEDS: MORPHINE SULFATE INJ 4 MG/ML DISP.SYRIN IV PRN ×5 (00:54→18:20)
[2021-01-14] MEDS: VANCOMYCIN 1 GM in IV D5W 250 ML IV SCH ×2 (04:05→12:08)
[2021-01-14] MEDS: MEROPENEM 1 G in IV NS 0.9% 100 ML IV SCH ×2 (05:17→13:43)
[2021-01-14 06:39] LABS: BASOPHILS % (AUTO) 0.4 % (0.0-2.0); EOSINOPHILS % (AUTO) 0.6 % (0.0-6.0); HEMATOCRIT 24 % (33-45); HEMOGLOBIN 7.5 g/dL (11.5-14.8); LYMPHOCYTES # (AUTO) 3.1 K/uL (0.8-4.8); LYMPHOCYTES % (AUTO) 36.4 % (20.0-44.0); MEAN CORPUSCULAR HGB CONC 32 g/dl (31.0-36.0); MEAN CORPUSCULAR VOLUME 82 fL (82-100); MONOCYTES # (AUTO) 0.5 K/uL (0.1-1.30); MONOCYTES % (AUTO) 5.9 % (2.0-12.0); NEUTROPHILS # (AUTO) 4.8 K/uL (1.8-8.9); NEUTROPHILS % (AUTO) 56.7 % (43.0-81.0); PLATELET COUNT (AUTO) 528 K/uL (150-450); RED BLOOD CELL COUNT(AUTO) 2.87 MIL/uL (4.0-5.2); WHITE BLOOD COUNT (AUTO) 8.6 K/uL (4.3-11.0)
[2021-01-14 06:52] LABS: CALCIUM, SERUM 7.7 mg/dL (8.5-10.1); CREATININE 0.5 mg/dL (0.6-1.3); MAGNESIUM 2.1 mg/dL (1.8-2.4); POTASSIUM 3.8 mmol/L (3.5-5.1)
--- NOTE | 2021-01-14 06:53 | NUR ---
RN CLOSING NOTE PATIENT AWAKE IN BED, NO COMPLAINS OF PAIN AT THIS TIME. GAVE MORPHINE AT 2053, 0054, AND 0600 FOR PAIN 10/10 GENERALIZED PAIN. PATIENT'S BECKY MIDLINE PATENT AND INTACT, SALINE LOCKED. PATIENT CURRENTLY ON 2L O2 SUPPLEMENT VIA NC. BREATHING EVEN AND UNLABORED. PATIENT IS ABLE TO MAKE NEEDS KNOWN. SAFETY MEASURES IMPLEMENTED. ALL ORDERS CARRIED OUT. ALL NEEDS MET AND ATTENDED. WILL ENDORSE TO DAY SHIFT NURSE FOR CHARLES.
--- NOTE | 2021-01-14 07:33 | NUR ---
MS RN OPENING NOTES RECEIVED PATIENT IN BED AWAKE, A/O X 4. ABLE TO MAKE NEEDS KNOWN, DENIES PAIN OR ANY DISCOMFORTS AT THIS TIME. ON SUPPLEMENTAL 02 VIA N/C AT 2LPM, BREATHING EVEN AND UNLABORED. BECKY MIDLINE G#18 INTACT, PATENT AND FLUSHES WELL. SAFETY MEASURES IN PLACE: BED LOCKED AND IN LOWEST POSITION, CALL LIGHT WITHIN REACH, SIDE RAILS UP X2. WILL MONITOR PT ACCORDINGLY.
[2021-01-14 08:00] VITALS: BP 124/82
[2021-01-14] MEDS: RIFAMPIN 300 MG CAPSULE PO SCH (08:21)
[2021-01-14] MEDS: VENLAFAXINE XR 75 MG CAP.SR.24H PO SCH (08:21)
[2021-01-14] MEDS: PANTOPRAZOLE 40 MG TABLET.DR PO SCH (08:21)
[2021-01-14] MEDS: MUPIROCIN OINT 2% 22 GM TUBE NS SCH (08:22)
--- NOTE | 2021-01-14 14:08 | NUR ---
RN NOTES PT C/O GENERALIZED PAIN , 10/10 SCALE. PRN MORPHINE 4MG/ML IVP ADMINISTERED AT 1406. WILL CONTINUE TO MONITOR AND REASSESS PT.
[2021-01-14] MEDS: SOD FERRIC GLUC 125 MG in IV NS 0.9% 100 ML IV SCH (14:52)
[2021-01-14 16:00] VITALS: BP 132/77
--- NOTE | 2021-01-14 16:46 | NUR ---
"SS note: SS requested for homelessness & drug abuse. SW completed SS assessment on 01/07/2021 in ED. SW met with pt. again today. Pt. appears unkempt, A&OX 4. Pt. mood is depressed with flat affect. Pt. denies SI/HI and denies hallucinations. Pt. has Hx. of drug use and SW offered rehab placement and pt. refused. Pt. is currently experiencing homelessness and stated she would like to return to live with boyfriendLavelle no contact number could be provided. SW provided homeless resources and pt. accepted them please refer to previous SS assessment on 01/07/21 for additional details. D/C Plan: SW discussed discharge plan with charge nurse India who stated that the pt. will be [facility] a [facility] for Tx. of abcess. Noted. SW will be available as needed. Pt. signed homeless waiver and it was placed in the chart. BARON provided pt. with homeless resources and he accepted them : Year-round shelters: [facility] [address] [place] [address] ; [facility] [address] [place] [address]; [facility] [place] [facility] [address] Winter Shelters: Irina Huitron Provider: Ray [facility] [place] Address: [address] [facility] [facility], [address] # of Beds: 47 Population Served: [facility] 6 | [facility] Irma Collier [place] Provider: [facility] Address: [address], [address] # of Beds: 66 Population Served: [facility] Monitor110 [place] Provider: [facility] Serve Address: [address] [facility], [address] # of Beds: 56 Population Served: [facility] Huitron Provider: /[facility] Address: [address] [facility], [address] # of Beds: 49 Population Served: [facility] 8 | [facility] Provider: First to Serve Address: [facility], [address] # of Beds: 37 Population Served: [facility]: [facility]: [address] [address] Suresh. [place] ; [facility] [address] [facility] ; [facility] [address] [facility] . Food Resources: [facility]- [address] [place]; Meet Each Need with Dignity ([facility]) [address] [facility]; [facility] 6606 [facility]; [facility] 8994 [facility]. Mental Health resources provided: [facility] [address] [place], [place] [address] ; [facility] [address] [facility] [address], [place], [place] [phone] ; [facility] [address] [facility] [place], [place] [id number] ; [facility] [address] [place], [place] [phone] Healthcare Clinics: [facility] [address] [facility], [address] [place]. [place] ; [facility] [address] [facility] [address] [place] [address]; [facility] [place] [address] [facility] [place] [phone] Counseling--Outpatient [facility] [address] [facility], [place] [address] (Specializes in in-depth psychotherapy for emotional distress: anxiety, depression, interpersonal conflicts, life transitions, childhood abuse) [facility] [address] [place], [place] [phone] (Assist with solving problem marital difficulties, separation & divorce, aging parents, & grief, chronic & terminal illness) [facility] [address] [place] [address] (Deal with loss & grief, anxiety, marital difficulties) Homebound/Mental Health Services [address] [address] [facility], [address] [place], [place] [address] (Provide in-home mental services to people who are incapable of leaving their homes) [facility] Elderly Senior Service/Resource Center [address] [place] [address] [facility] [address] [facility]. [place], [place] [phone] PSYCHIATRIC OUTPATIENT SERVICES [facility] Partial Hospitalization and Intensive Outpatient Program (Managed Care and [place] Only)[address] [facility] [phone] [facility] Partial Hospitalization and Outpatient Swtmswf[address] [place] [address] [place], [place] [phone] [facility] [place] Hkp[address]96 [facility]. [address] [place], [place] [phone] [facility] Partial Hospitalization and Outpatient Asakumt49494 [place], [phone] Substance Abuse resources provided included: [facility] Substance Abuse Self-Helpline (SAS) ; [facility] [address] [facility]. [place] [address] ; [facility] [address] [facility] [address] ; [facility] [address] [place] [facility] [address] ; [facility] [address] [facility] [address] ; [facility] [address] [facility] [address] ; [facility] [address] [facility] [place] [phone] ; [facility] Substance Abuse Helpline(SAS)-[facility] ; [facility] Family [facility]ing ; [facility]; [facility]; [facility] [place]; [facility] Lavelle Nichols; [facility] [place]; [facility] [place]; [facility] [place]; [facility], [facility]. [place]; Alcoholics Anonymous -SFV; Uw-Omwe-Ckbctyk ; Marijuana Anonymous -SFV; Narcotics Anonymous www.na."
--- NOTE | 2021-01-14 19:02 | NUR ---
MS RN CLOSING NOTES PATIENT IN BED AWAKE, A/O X 4. ABLE TO MAKE NEEDS KNOWN. ON SUPPLEMENTAL 02 VIA N/C AT 2LPM, BREATHING EVEN AND UNLABORED. BECKY MIDLINE G#18 INTACT, PATENT AND FLUSHES WELL. SAFETY MEASURES IN PLACE: BED LOCKED AND IN LOWEST POSITION, CALL LIGHT WITHIN REACH, SIDE RAILS UP X2. PT FOR TRANSFER TO [facility]. CALLED AND REPORT GIVEN TO CLARI TREJO. ENDORSED TO OUTDOOR POWER EQUIPMENT MECHANIC NURSE.
--- NOTE | 2021-01-14 20:05 | NUR ---
MS BUILDING RENTAL SUPERINTENDENT NOTES PT PICKED UP BY [facility] TWO PERSONNEL VIA [place] FOR TRANSFER TO [facility] FOR HIGHER LEVEL OF CARE. PT AWAKE, A/O X4. BREATHING EVEN AND UNLABORED, ON O2 @2LPM VIA NC. SPO2 98%. IV SITE ON BECKY MIDLINE INTACT/PATENT. HEALTH/MED TEACHINGS/DISCHARGE TEACHINGS PROVIDED AND PT VERBALIZED UNDERSTANDING. PT IN NO ACUTE DISTRESS. TRANSFERRED IN STABLE CONDITION.
== END 2021-01-14 20:10 | disposition short-term general hospital (02) | DRG 917 ==
LOC: EDBD 19:04 → ER 19:04 → TELE1 01-07 06:47 → TRANSITION 01-07 07:09 → TELE1 01-07 13:18 → MEDSG1 01-07 20:05 → MED 01-12 21:09
PROVIDERS: ADMIT Nurse Practitioner Acute Care; ATTEND Nurse Practitioner Family
PROC: 05H533Z Insertion of Infusion Device into Right Subclavian Vein, Percutaneous Approach (ICD-10-PCS; principal; 2021-01-08)
PROC: B546ZZA Ultrasonography of Right Subclavian Vein, Guidance (ICD-10-PCS; 2021-01-08)
DX: T43.621A Poisoning by amphetamines, accidental (unintentional), initial encounter (principal); A41.02 Sepsis due to Methicillin resistant Staphylococcus aureus; G92 Toxic encephalopathy; J86.9 Pyothorax without fistula; R65.20 Severe sepsis without septic shock; E87.1 Hypo-osmolality and hyponatremia; N39.0 Urinary tract infection, site not specified; E44.0 Moderate protein-calorie malnutrition; D68.59 Other primary thrombophilia; G82.20 Paraplegia, unspecified; J98.19 Other pulmonary collapse; I76 Septic arterial embolism; T85.79XA Infection and inflammatory reaction due to other internal prosthetic devices, implants and grafts, initial encounter; G95.20 Unspecified cord compression; M46.24 Osteomyelitis of vertebra, thoracic region; J90 Pleural effusion, not elsewhere classified; Z59.0 Homelessness; E86.1 Hypovolemia; E87.6 Hypokalemia; D64.9 Anemia, unspecified; F15.10 Other stimulant abuse, uncomplicated; F13.10 Sedative, hypnotic or anxiolytic abuse, uncomplicated; F32.9 Major depressive disorder, single episode, unspecified; E88.09 Other disorders of plasma-protein metabolism, not elsewhere classified; M62.50 Muscle wasting and atrophy, not elsewhere classified, unspecified site; E80.6 Other disorders of bilirubin metabolism; F10.10 Alcohol abuse, uncomplicated; Z68.25 Body mass index [BMI] 25.0-25.9, adult; E87.8 Other disorders of electrolyte and fluid balance, not elsewhere classified; R53.1 Weakness; R23.4 Changes in skin texture; Z22.322 Carrier or suspected carrier of Methicillin resistant Staphylococcus aureus; F41.9 Anxiety disorder, unspecified; Y83.8 Other surgical procedures as the cause of abnormal reaction of the patient, or of later complication, without mention of misadventure at the time of the procedure; Y92.89 Other specified places as the place of occurrence of the external cause; M46.44 Discitis, unspecified, thoracic region; N61.0 Mastitis without abscess; Z20.822 Contact with and (suspected) exposure to COVID-19; M40.14 Other secondary kyphosis, thoracic region; R32 Unspecified urinary incontinence; Y83.1 Surgical operation with implant of artificial internal device as the cause of abnormal reaction of the patient, or of later complication, without mention of misadventure at the time of the procedure; S21.001A Unspecified open wound of right breast, initial encounter; T42.4X1A Poisoning by benzodiazepines, accidental (unintentional), initial encounter
CPT/HCPCS: 36415; 70450-TC; 71045-TC; 71250-TC; 72157-TC; 76882; 80048-TC; 80076-TC; 80202-TC; 81001; 82728-TC; 83540-TC; 83605-TC; 83735-TC; 84100-TC; 84155; 84165; 84439-TC; 84443-TC; 84484-TC; 84703-TC; 85025-TC; 87040-TC; 87070-TC; 87081-TC; 87086-TC; 87806; 93307-TC; 93970-TC; 97112-TC; 97530-TC; A6253; A6403; A9575; C9803; G0378; G0480; J0456; J0696; J1650; J2185; J2270; J2310; J2916; J3370; J7030; J7050; J7060; Q0163; U0003